=== PATIENT | female | born 1990 | race Hispanic/Latino ===

== ENCOUNTER 2020-07-31 08:16 | Outpatient (CLI) | payer OTHER ==
[2020-07-31 23:52] LABS: SARS-CoV-2 PCR by NAA Not Detected (NotDetected)
== END 2020-07-31 08:17 | disposition home or self-care (01) ==
LOC: CSHLAB 08:16
PROVIDERS: ATTEND Family Medicine
DX: Z20.822 Contact with and (suspected) exposure to COVID-19 (principal)
CPT/HCPCS: 87635; U0003; U0005

== ENCOUNTER 2020-08-03 05:04 | Inpatient (IN) | payer OTHER ==
[2020-08-03] MEDS ORDERED: hydrALAZINE 20 MG/ML VIAL SLOW IVP PRN ×2 (05:39→10:51)
[2020-08-03] MEDS ORDERED: Promethazine HCl 25 MG/ML VIAL IM PRN ×3 (05:39→10:51)
[2020-08-03] MEDS ORDERED: Ondansetron PF 4 MG/2 ML Vial IVP PRN ×3 (05:39→10:51)
[2020-08-03] MEDS ORDERED: Bicitra 30 ML UDCUP PO PRN (05:39)
[2020-08-03] MEDS ORDERED: Famotidine/PF 20 mg/2ml Vial SLOW IVP PRN (05:39)
[2020-08-03] MEDS ORDERED: Lactated Ringer's 1,000 ML IV SCH (05:39)
[2020-08-03 05:54] VITALS: BMI 35.1
[2020-08-03] MEDS ORDERED: CEFAZOLIN 2 GM in Premix Bag 1 BAG IVPB SCH (06:00)
[2020-08-03 06:03] LABS: Hemoglobin 11.6 g/dL (12.0-15.5); Mean Corpuscular HGB CONC 32.3 g/dL (32.0-36.0); Mean Corpuscular Hemoglobin 26.2 pg (27.0-33.0); Mean Corpuscular Volume 81.2 fl (81.6-98.3); Mean Platelet Volume 12.2 fl (7.4-10.4); Platelet Count 270 10x3/uL (150-450); RBC Distribution Width 13.7 % (11.5-14.5); Red Blood Cell (RBC) Count 4.42 10x6/uL (3.90-5.03); White Blood Cell (WBC) Count 8.9 10x3/uL (3.5-10.5)
[2020-08-03 06:40] LABS: Syphilis Antibody Nonreactive (Nonreactive); Syphilis Antibody Index 0.03 S/CO (<1.00 Non-Reactive)
[2020-08-03 06:41] LABS: Hep B Surf Ag Non-Reactive S/CO (NonReactive)
[2020-08-03 06:48] LABS: HBSAg Index 0.17 S/CO (0-0.99)
[2020-08-03] MEDS ORDERED: Morphine PF 10 MG/10 ML VIAL ONE (07:11)
[2020-08-03] MEDS ORDERED: Phenylephrine 10 MG/ML VIAL ONE (07:11)
[2020-08-03] MEDS ORDERED: ePHEDrine Sulfate 50 MG/10 ML VIAL ONE (07:11)
[2020-08-03] MEDS ORDERED: Ondansetron PF 4 MG/2 ML Vial ONE ×2 (07:11→08:09)
[2020-08-03] MEDS ORDERED: Oxytocin 10 UNITS/ML VIAL ONE (07:11)
[2020-08-03] MEDS ORDERED: Ketorolac Tromethamine 30 MG/ML VIAL ONE (07:11)
[2020-08-03] MEDS ORDERED: diphenhydrAMINE 50 MG/ML VIAL IVP PRN (07:17)
[2020-08-03] MEDS ORDERED: Naloxone HCl 0.4 mg/ml Vial IVP PRN ×2 (07:17)
[2020-08-03] MEDS ORDERED: Ketorolac Tromethamine 30 MG/ML VIAL IVP PRN (07:17)
[2020-08-03] MEDS ORDERED: L&D-Morphine 4 MG/ML VIAL SLOW IVP PRN (07:17)
[2020-08-03] MEDS ORDERED: Naloxone HCl 0.4 mg/ml Vial IV PRN (07:17)
[2020-08-03] MEDS ORDERED: Meperidine HCl/PF 25 MG/ML VIAL SLOW IVP PRN (07:17)
[2020-08-03] MEDS ORDERED: Promethazine HCl 25 MG SUPP PR PRN (07:17)
[2020-08-03] MEDS ORDERED: Ondansetron HCl/PF 4 MG/2 ML Vial IVP PRN (07:17)
[2020-08-03] MEDS ORDERED: Phenylephrine 40 MG in Sodium Chloride 0.9% 250 ML 250 ML IVPB SCH (07:30)
[2020-08-03] MEDS ORDERED: Communication Order-Pharmacy FS SCH (07:30)
[2020-08-03] MEDS ORDERED: Phenylephrine 40 MG/NS 250 ML 10 MG in Premix Bag 1 BAG IVPB SCH (07:30)
[2020-08-03] MEDS ORDERED: PHENYLEPHRINE-NS 100 MCG/ML 10 ML SYRINGE ONE (07:39)
[2020-08-03] MEDS ORDERED: Carboprost 250 MCG/ML AMP ONE (07:44)
[2020-08-03] MEDS ORDERED: Methylergonovine 0.2 MG/ML VIAL ONE (07:44)
[2020-08-03] MEDS ORDERED: HYDROmorphone 0.5 MG/0.5 ML SYRINGE SLOW IVP PRN (07:49)
[2020-08-03] MEDS ORDERED: NS w/ Oxytocin 30 units 500 ML ONE (09:02)
[2020-08-03] MEDS: Misoprostol 200 MCG TAB ONE ×2 (09:54→11:28)
[2020-08-03] MEDS ORDERED: Misoprostol 200 MCG TAB PR SCH (10:45)
[2020-08-03] MEDS ORDERED: Meperidine HCl/PF 25 MG/ML VIAL IM PRN (10:51)
[2020-08-03] MEDS ORDERED: Adacel (T-DAP) 0.5 ML SYRINGE IM ONE (10:51)
[2020-08-03] MEDS ORDERED: diphenhydrAMINE 25 MG CAP PO PRN (10:51)
[2020-08-03] MEDS ORDERED: Bisacodyl 10 MG SUPP PR PRN (10:51)
[2020-08-03] MEDS ORDERED: Simethicone Chewable 80 MG TAB PO PRN (10:51)
[2020-08-03] MEDS ORDERED: Docusate Calcium (SURFAK) 240 MG CAP PO SCH (11:15)
[2020-08-03] MEDS ORDERED: NS w/ Oxytocin 30 units 500 ML IVPB SCH (11:15)
[2020-08-03] MEDS ORDERED: Ferrous Sulfate 325 MG TAB PO SCH (11:15)
[2020-08-03] MEDS ORDERED: Prenatal Vitamin 1 TAB PO SCH (11:15)
[2020-08-03] MEDS: Ketorolac Tromethamine 30 MG/ML VIAL IVP SCH ×2 (12:22→17:54)
[2020-08-03] MEDS ORDERED: Ketorolac Tromethamine 30 MG/ML VIAL IVP SCH (14:00)
[2020-08-03] MEDS ORDERED: Ibuprofen 800 MG TAB PO SCH (14:00)
[2020-08-04] MEDS: Ketorolac Tromethamine 30 MG/ML VIAL IVP SCH ×2 (00:01→06:28)
[2020-08-04 06:22] LABS: Hemoglobin 9.2 g/dL (12.0-15.5); Mean Corpuscular HGB CONC 31.2 g/dL (32.0-36.0); Mean Corpuscular Hemoglobin 25.8 pg (27.0-33.0); Mean Corpuscular Volume 82.6 fl (81.6-98.3); Mean Platelet Volume 11.9 fl (7.4-10.4); Platelet Count 165 10x3/uL (150-450); RBC Distribution Width 13.9 % (11.5-14.5); Red Blood Cell (RBC) Count 3.57 10x6/uL (3.90-5.03); White Blood Cell (WBC) Count 5.9 10x3/uL (3.5-10.5)
[2020-08-04] MEDS: Ferrous Sulfate 325 MG TAB PO SCH ×3 (06:36→20:34)
[2020-08-04] MEDS: Docusate Calcium (SURFAK) 240 MG CAP PO SCH ×3 (06:36→20:34)
[2020-08-04] MEDS: HYDROcodone/Acetaminophen 5/325 mg Tablet PO PRN ×2 (08:55→17:18)
[2020-08-04] MEDS: Prenatal Vitamin 1 TAB PO SCH (08:55)
[2020-08-04] MEDS: Ibuprofen 800 MG TAB PO SCH ×2 (10:48→20:34)
[2020-08-04] MEDS ORDERED: Ibuprofen 800 MG TAB PO SCH (11:30)
[2020-08-05] MEDS: HYDROcodone/Acetaminophen 5/325 mg Tablet PO PRN ×4 (04:12→22:41)
[2020-08-05] MEDS: Ibuprofen 800 MG TAB PO SCH ×2 (04:13→11:33)
[2020-08-05] MEDS: Prenatal Vitamin 1 TAB PO SCH (08:54)
[2020-08-05] MEDS: Ferrous Sulfate 325 MG TAB PO SCH ×2 (08:54→21:12)
[2020-08-05] MEDS: Docusate Calcium (SURFAK) 240 MG CAP PO SCH ×2 (08:54→21:12)
[2020-08-06] MEDS: Ibuprofen 800 MG TAB PO SCH (04:46)
[2020-08-06 08:02] VITALS: BP 125/70; TEMP 99.1
[2020-08-06] MEDS: Ferrous Sulfate 325 MG TAB PO SCH (09:29)
[2020-08-06] MEDS: Docusate Calcium (SURFAK) 240 MG CAP PO SCH (09:30)
[2020-08-06] MEDS: Prenatal Vitamin 1 TAB PO SCH (09:30)
== END 2020-08-06 11:48 | disposition home or self-care (01) | DRG 788 ==
LOC: CSHLD 05:04 → CSHPP 10:59
PROVIDERS: ADMIT Family Medicine; ATTEND Family Medicine
PROC: 10D00Z1 Extraction of Products of Conception, Low, Open Approach (ICD-10-PCS; principal; 2020-08-03)
DX: O34.211 Maternal care for low transverse scar from previous cesarean delivery (principal); Z3A.39 39 weeks gestation of pregnancy; Z37.0 Single live birth
CPT/HCPCS: 36415; 51702; 85027; 86780; 86850; 86900; 86901; 87340; J0690; J1170; J1200; J1885; J2270; J2370; J2405; J2590; Q0163

== ENCOUNTER 2021-09-27 07:41 | Emergency (ER) | payer OTHER ==
[2021-09-27 08:21] LABS: Bilirubin Neg (Negative); Blood, Urine 250 (Negative); Clarity Clear (Clear); Glucose, Urine (Dipstick) Normal (Negative); Ketone, Urine Negative (Negative); Leukocyte 500 (Negative); Nitrite Negative (Negative); Protein, Urine (Dipstick) 15 mg/dl (Neg-Trace); Urobilinogen Normal mg/dL (Less than 2)
[2021-09-27 08:36] LABS: Transitional Epithelial 0-3 HPF (None Seen)
[2021-09-27 08:37] LABS: Mucous/LPF 2+ LPF (<2+)
[2021-09-27 08:38] LABS: Bacteria/HPF Rare-Few HPF (None Seen)
[2021-09-27 08:44] LABS: #Eosinphils 0.1 10x3/uL (0.0-0.5); #Monocytes 0.7 10x3/uL (0.0-1.1); #Neutrophils 4.7 10x3/uL (1.5-8.4); %Basophils 0.4 % (0.0-2.0); %Eosinophils 1.2 % (0.0-6.0); %Lymphocytes 18.3 % (18.0-47.0); %Monocytes 9.7 % (0.0-10.0); Hemoglobin 12.3 g/dL (12.0-15.5); Mean Corpuscular HGB CONC 33.5 g/dL (32.0-36.0); Mean Corpuscular Hemoglobin 28.1 pg (27.0-33.0); Mean Corpuscular Volume 83.8 fl (81.6-98.3); Mean Platelet Volume 12.1 fl (7.4-10.4); Platelet Count 230 10x3/uL (150-450); RBC Distribution Width 13.6 % (11.5-14.5); Red Blood Cell (RBC) Count 4.38 10x6/uL (3.90-5.03); White Blood Cell (WBC) Count 6.7 10x3/uL (3.5-10.5)
== END 2021-09-27 09:34 | disposition home or self-care (01) ==
LOC: CSHERS 07:41
DX: O20.0 Threatened abortion (principal); Z3A.01 Less than 8 weeks gestation of pregnancy
CPT/HCPCS: 36415; 81003; 81015; 84702; 85025

== ENCOUNTER 2022-02-08 12:17 | Day surgery (SDC) | payer OTHER ==
[2022-02-08] MEDS ORDERED: hydrALAZINE 20 MG/ML VIAL SLOW IVP PRN (13:29)
[2022-02-08] MEDS ORDERED: Lactated Ringer's 1,000 ML IV SCH (13:30)
[2022-02-08] MEDS ORDERED: Ondansetron ODT 8 MG TAB SL SCH (13:30)
[2022-02-08] MEDS ORDERED: Ondansetron ODT 4 MG TAB SL SCH (14:00)
[2022-02-09 10:32] LABS: Chlamydia by PCR Not Detected (NotDetected); GC by PCR Not Detected (NotDetected)
== END 2022-02-08 15:00 | disposition home health service (06) ==
LOC: CSHLD/OP 12:17
PROVIDERS: ATTEND Family Medicine
DX: O21.2 Late vomiting of pregnancy (principal); O26.892 Other specified pregnancy related conditions, second trimester; R19.7 Diarrhea, unspecified; R10.9 Unspecified abdominal pain; N89.8 Other specified noninflammatory disorders of vagina; Z3A.27 27 weeks gestation of pregnancy; Z79.899 Other long term (current) drug therapy; Z90.49 Acquired absence of other specified parts of digestive tract; Z98.890 Other specified postprocedural states
CPT/HCPCS: 87480; 87491; 87510; 87591; 87660; 96360; 96361; 99283; Q0162

== ENCOUNTER 2022-03-28 08:02 | Day surgery (SDC) | payer OTHER ==
[2022-03-28 08:41] VITALS: BMI 33.0
[2022-03-28] MEDS ORDERED: hydrALAZINE 20 MG/ML VIAL SLOW IVP PRN (09:06)
[2022-03-28 09:52] LABS: Bilirubin Neg (Negative); Blood, Urine 10 (Negative); Glucose, Urine (Dipstick) Normal (Negative); Ketone, Urine Negative (Negative); Leukocyte 25 (Negative); Nitrite Negative (Negative); Protein, Urine (Dipstick) 15 mg/dl (Neg-Trace); Urobilinogen Normal mg/dL (Less than 2)
[2022-03-28 09:55] LABS: Clarity Slightly Cloudy (Clear)
[2022-03-28 09:58] LABS: Bacteria/HPF Rare-Few HPF (None Seen); RBC/HPF 0-3 HPF (0-3); Squamous Epithelial 0-3 HPF (0-3); WBC/HPF 0-3 HPF (0-3)
[2022-03-29] MEDS ORDERED: metroNIDAZOLE 500 MG TAB PO SCH (08:00)
[2022-03-29] MEDS ORDERED: Fluconazole 100 MG TAB PO SCH (09:00)
== END 2022-03-28 10:26 | disposition home or self-care (01) ==
LOC: CSHLD/OP 08:02
PROVIDERS: ATTEND Family Medicine
DX: O23.593 Infection of other part of genital tract in pregnancy, third trimester (principal); B37.9 Candidiasis, unspecified; B96.89 Other specified bacterial agents as the cause of diseases classified elsewhere; Z3A.33 33 weeks gestation of pregnancy
CPT/HCPCS: 81003; 81015; 87480; 87510; 87660; 99283

== ENCOUNTER 2022-05-03 05:36 | Inpatient (IN) | payer OTHER ==
[2022-05-02 09:54] LABS: #Eosinphils 0.1 10x3/uL (0.0-0.5); #Monocytes 0.6 10x3/uL (0.0-1.1); #Neutrophils 4.8 10x3/uL (1.5-8.4); %Basophils 0.3 % (0.0-2.0); %Eosinophils 0.8 % (0.0-6.0); %Lymphocytes 14.3 % (18.0-47.0); %Neutrophils 74.8 % (40.0-75.0); Hemoglobin 10.8 g/dL (12.0-15.5); Mean Corpuscular HGB CONC 32.4 g/dL (32.0-36.0); Mean Corpuscular Hemoglobin 25.2 pg (27.0-33.0); Mean Corpuscular Volume 77.6 fl (81.6-98.3); Mean Platelet Volume 11.3 fl (7.4-10.4); Platelet Count 301 10x3/uL (150-450); RBC Distribution Width 14.7 % (11.5-14.5); Red Blood Cell (RBC) Count 4.29 10x6/uL (3.90-5.03); White Blood Cell (WBC) Count 6.4 10x3/uL (3.5-10.5)
[2022-05-02 10:25] LABS: SARS-CoV-2 NAA Rapid Test Not Detected (NotDetected)
[2022-05-02 10:48] LABS: Syphilis Antibody Nonreactive (Nonreactive); Syphilis Antibody Index 0.05 S/CO (<1.00 Non-Reactive)
[2022-05-02 10:49] LABS: HBSAg Index 0.14 S/CO (0-0.99); Hep B Surf Ag Non-Reactive S/CO (NonReactive)
[2022-05-03] MEDS ORDERED: Ondansetron PF 4 MG/2 ML Vial IVP PRN ×3 (06:10→09:53)
[2022-05-03] MEDS ORDERED: Promethazine HCl 25 MG/ML VIAL IM PRN ×2 (06:10→07:25)
[2022-05-03] MEDS ORDERED: Lactated Ringer's 1,000 ML IV SCH (06:10)
[2022-05-03] MEDS ORDERED: Bicitra 30 ML UDCUP PO PRN (06:10)
[2022-05-03] MEDS ORDERED: CEFAZOLIN 2 GM in Sodium Chloride 0.9% 100 ML IVPB SCH (06:10)
[2022-05-03] MEDS ORDERED: Famotidine/PF 20 mg/2ml Vial SLOW IVP PRN (06:10)
[2022-05-03] MEDS ORDERED: hydrALAZINE 20 MG/ML VIAL SLOW IVP PRN ×2 (06:10→09:53)
[2022-05-03 06:11] VITALS: BMI 33.6
[2022-05-03] MEDS ORDERED: Ketorolac Tromethamine 30 MG/ML VIAL ONE (07:06)
[2022-05-03] MEDS ORDERED: Phenylephrine 40 MG/NS 250 ML 250 ML ONE (07:06)
[2022-05-03] MEDS ORDERED: Morphine PF 10 MG/10 ML VIAL ONE (07:06)
[2022-05-03] MEDS ORDERED: Oxytocin 10 UNITS/ML VIAL ONE (07:06)
[2022-05-03] MEDS ORDERED: PHENYLEPHRINE-NS 100 MCG/ML 10 ML SYRINGE ONE (07:06)
[2022-05-03] MEDS ORDERED: ePHEDrine Sulfate 50 MG/10 ML VIAL ONE (07:06)
[2022-05-03] MEDS ORDERED: Ondansetron PF 4 MG/2 ML Vial ONE (07:06)
[2022-05-03] MEDS ORDERED: Moisturizing Cream (Eucerin) 113 GM JAR TOP PRN (07:25)
[2022-05-03] MEDS ORDERED: Naloxone HCl 0.4 mg/ml Vial IVP PRN ×2 (07:25)
[2022-05-03] MEDS ORDERED: Ondansetron HCl/PF 4 MG/2 ML Vial IVP PRN (07:25)
[2022-05-03] MEDS ORDERED: Naloxone HCl 0.4 mg/ml Vial IV PRN (07:25)
[2022-05-03] MEDS ORDERED: Promethazine HCl 25 MG SUPP PR PRN (07:25)
[2022-05-03] MEDS ORDERED: Fentanyl 100 MCG/2 ML VIAL SLOW IVP PRN (07:25)
[2022-05-03] MEDS ORDERED: diphenhydrAMINE 50 MG/ML VIAL IVP PRN (07:25)
[2022-05-03] MEDS ORDERED: Meperidine HCl/PF 25 MG/ML VIAL SLOW IVP PRN (07:25)
[2022-05-03] MEDS ORDERED: Communication Order-Pharmacy FS SCH (07:30)
[2022-05-03] MEDS ORDERED: HYDROcodone/Acetaminophen 5/325 mg Tablet PO PRN (09:53)
[2022-05-03] MEDS ORDERED: Meperidine HCl/PF 25 MG/ML VIAL IM PRN (09:53)
[2022-05-03] MEDS ORDERED: Boostrix 0.5 ML (Tdap) VIAL (>/=7 yrs of age) IM ONE (09:53)
[2022-05-03] MEDS ORDERED: diphenhydrAMINE 25 MG CAP PO PRN (09:53)
[2022-05-03] MEDS ORDERED: Bisacodyl 10 MG SUPP PR PRN (09:53)
[2022-05-03] MEDS ORDERED: Lanolin Ointment 7 GM TUBE TOP PRN (09:53)
[2022-05-03] MEDS ORDERED: Ketorolac Tromethamine 30 MG/ML VIAL IVP PRN ×2 (14:30→15:13)
[2022-05-03] MEDS ORDERED: Ketorolac Tromethamine 30 MG/ML VIAL IVP SCH (14:30)
[2022-05-03] MEDS: Prenatal Vitamin 1 TAB PO SCH (14:57)
[2022-05-03] MEDS: Ferrous Sulfate 325 MG TAB PO SCH ×2 (14:57→21:48)
[2022-05-03] MEDS: Docusate 100 MG CAP PO SCH ×2 (14:57→21:47)
[2022-05-03] MEDS: Ketorolac Tromethamine 30 MG/ML VIAL IVP SCH (21:48)
[2022-05-04] MEDS: Ketorolac Tromethamine 30 MG/ML VIAL IVP SCH (03:42)
[2022-05-04 05:07] LABS: Hemoglobin 8.3 g/dL (12.0-15.5); Mean Corpuscular Hemoglobin 25.5 pg (27.0-33.0); Mean Corpuscular Volume 79.4 fl (81.6-98.3); Mean Platelet Volume 11.7 fl (7.4-10.4); Platelet Count 241 10x3/uL (150-450); RBC Distribution Width 14.5 % (11.5-14.5); Red Blood Cell (RBC) Count 3.26 10x6/uL (3.90-5.03); White Blood Cell (WBC) Count 6.8 10x3/uL (3.5-10.5)
[2022-05-04] MEDS: Prenatal Vitamin 1 TAB PO SCH (08:20)
[2022-05-04] MEDS: Simethicone Chewable 80 MG TAB PO PRN (08:20)
[2022-05-04] MEDS: HYDROcodone/Acetaminophen 5/325 mg Tablet PO PRN ×4 (08:20→21:28)
[2022-05-04] MEDS: Ferrous Sulfate 325 MG TAB PO SCH ×2 (08:20→21:27)
[2022-05-04] MEDS: Docusate 100 MG CAP PO SCH ×2 (08:20→21:26)
[2022-05-04] MEDS: Ibuprofen 800 MG TAB PO SCH ×2 (13:41→21:27)
[2022-05-05] MEDS: Ibuprofen 800 MG TAB PO SCH ×2 (05:04→13:27)
[2022-05-05] MEDS: Ferrous Sulfate 325 MG TAB PO SCH (07:43)
[2022-05-05] MEDS: Simethicone Chewable 80 MG TAB PO PRN (07:43)
[2022-05-05] MEDS: Docusate 100 MG CAP PO SCH (07:43)
[2022-05-05] MEDS: HYDROcodone/Acetaminophen 5/325 mg Tablet PO PRN ×2 (07:44→15:29)
[2022-05-05] MEDS: Prenatal Vitamin 1 TAB PO SCH (07:44)
[2022-05-05 08:07] VITALS: BP 118/63; TEMP 98.4
[2022-05-08] MEDS ORDERED: Ibuprofen 800 MG TAB PO SCH (22:00)
== END 2022-05-05 17:50 | disposition home or self-care (01) | DRG 788 ==
LOC: CSHLD 05:36 → CSHPP 09:57
PROVIDERS: ADMIT Family Medicine; ATTEND Family Medicine
PROC: 10D00Z1 Extraction of Products of Conception, Low, Open Approach (ICD-10-PCS; principal; 2022-05-03)
DX: O34.211 Maternal care for low transverse scar from previous cesarean delivery (principal); Z37.0 Single live birth; Z3A.39 39 weeks gestation of pregnancy; Z20.822 Contact with and (suspected) exposure to COVID-19
CPT/HCPCS: 36415; 51702; 85025; 85027; 86780; 86850; 86900; 86901; 87340; J1200; J1885; J2274; J2405; J2590; J3490; S0028; U0002